=== PATIENT | female | born 1975 | race Caucasian/White ===

== ENCOUNTER 2021-01-21 16:18 | Emergency (ER) | payer BC ==
[~2021-01-21] VITALS: Ht 170 cm; Wt 90.9 kg
--- NOTE | 2021-01-21 17:10 | Diagnostic Imaging Report ---
EXAMINATION: Right knee radiographs, 3 views. COMPARISON: None. HISTORY: 45-year-old female, right knee pain. FINDINGS: There is no identified acute fracture. The lateral view is obliquely positioned. There does appear to be at least mild patellofemoral compartment joint space loss. The medial and lateral compartment joint spaces are well preserved. There is no knee joint effusion. IMPRESSION: 1. No identified acute bony abnormality. 2. At least mild patellofemoral compartment osteoarthritis without knee joint effusion. Dictated by: Dictated on workstation # [id number]
--- NOTE | 2021-01-21 17:43 | ED Lower Extremity ---
General Chief Complaint: Lower Extremity Stated Complaint: R KNEE INJ,PASSED OUT Nursing Triage Note: Patient reports standing on a cooler trying to get into the bed of her truck. Cooler slipped out from underneath her and her R leg twisted and a 'pop' was felt in the knee. Patient states after she put pressure on her R leg, she felt she was going to pass out. Source: patient Exam Limitations: no limitations History of Present Illness Date Seen by Provider: Jan 21, 2021 Time Seen by Provider: 16:25 Initial Comments This 45-year-old woman presents to the emergency room with injury to the right knee. She was stepping up on a small cooler to get into the bed of her truck. The cooler slipped out from underneath her. She fell with a twisting motion and felt a pop in the knee. Since then it has felt unstable. She has pain with weightbearing. There is a popping sensation when she moves the knee. Denies any prior injury to this knee. She denies any other acute injury during the incident today. Allergies and Home Medications Allergies Coded Allergies: No Known Allergies (Verified Allergy, Unknown, 08/27/05) Patient Home Medication List Home Medication List Reviewed: Yes Review of Systems Constitutional: no symptoms reported EENTM: no symptoms reported Respiratory: no symptoms reported Cardiovascular: no symptoms reported Gastrointestinal: no symptoms reported Genitourinary: no symptoms reported Musculoskeletal: see HPI Skin: no symptoms reported Psychiatric/Neurological: No Symptoms Reported Past [id number]-[id number]-Sbaosz Hx Patient Social History Tobacco Use?: No Substance use?: No Alcohol Use?: Yes Alcohol Frequency: Couple times a week Past Medical History Surgeries: Yes Abdominal (Hernia), Section Respiratory: No Cardiac: No Neurological: No : No Reproductive Disorders: No Genitourinary: No Gastrointestinal: No Musculoskeletal: No Endocrine: No HEENT: No Cancer: No Psychosocial: No Integumentary: No Physical Exam Vital Signs Vital Signs - First Documented 01/21/21 16:32 Temp 36.8 Pulse 81 Resp 18 B/P (MAP) 156/81 (106) Pulse Ox 98 Capillary Refill : Height, Weight, BMI Height: '" Weight: lbs. oz. kg; 31.00 BMI Method: General Appearance: WD/WN, mild distress HEENT: normal ENT inspection Knees: right knee other (No tenderness in the joint line or over the patella. No significant pain with axial loading. Clunking crepitus with passive range of motion. Drawer tests reveal no clunk or laxity.) Progress/Results/Core Measures Results/Orders My Orders Orders - CHELSEY PAN MD Knee, Right, 3 Views (01/21/21 16:33) Vital Signs/I&O 01/21/21 01/21/21 16:32 17:49 Temp 36.8 36.8 Pulse 81 81 Resp 18 18 B/P (MAP) 156/81 (106) 156/81 (106) Pulse Ox 98 98 Blood Pressure Mean: 106 Progress Progress Note : Progress Note Knee x-ray revealed no bony injuries. Knee immobilizer was applied. Patient was advised to follow-up with her primary care provider to be considered for MRI to evaluate for soft tissue injury. Diagnostic Imaging Diagonstic Imaging: Xray Plain Films/CT/US/NM/MRI: knee Comments Right knee x-ray viewed by me and report reviewed. See report below: NAME: LEAH TAVERAS [facility] REC#: [id number] PT STATUS: REG ER : 1975 PHYSICIAN: CHELSEY PAN MD ADMIT DATE: 01/21/21/ER Signed Date of Exam:01/21/21 KNEE, RIGHT, 3 VIEWS EXAMINATION: Right knee radiographs, 3 views. COMPARISON: None. HISTORY: 45-year-old female, right knee pain. FINDINGS: There is no identified acute fracture. The lateral view is obliquely positioned. There does appear to be at least mild patellofemoral compartment joint space loss. The medial and lateral compartment joint spaces are well preserved. There is no knee joint effusion. IMPRESSION: 1. No identified acute bony abnormality. 2. At least mild patellofemoral compartment osteoarthritis without knee joint effusion. Dictated by: Dictated on workstation # [id number] Dict: 01/21/215 Trans: 01/21/211709 [facility] [id number] Interpreted by: JOHANNY RING MD Electronically signed by: JOHANNY RING MD 01/21/214 Departure Impression Primary Impression: Injury of right knee Qualified Codes: S89.91XA - Unspecified injury of right lower leg, initial encounter Disposition: HOME, SELF-CARE Condition: Improved Departure-Patient Inst. Decision time for Depature: 17:42 Referrals: NO,LOCAL PHYSICIAN (PCP) Primary Care Physician Patient Instructions: Knee Pain (DC) Add. Discharge Instructions: X-rays revealed no injury to the bony structures of your knee. There may be soft tissue injury such as meniscus tear or ligament tear. This can be further evaluated by repeat exam and appropriate imaging such as MRI if necessary. Please follow-up with your primary care provider soon as possible. Call Saturday for an appointment. Rest, elevation, and 20-minute intervals of icing may help reduce pain and swelling. Use the knee immobilizer for stability and comfort as needed. Use crutches and avoid full weightbearing with walking until your follow-up appointment. Light weightbearing to rest your foot on the floor is acceptable. Call with questions or concerns. Return to the ER if you have worsening symptoms. All discharge instructions reviewed with patient and/or family. Voiced understanding. CHELSEY PAN MD Jan 21, 2021 17:43
[2021-01-21 17:49] VITALS: BP 156/81
== END 2021-01-21 17:49 | disposition home or self-care (01) ==
LOC: EDUNIT# 16:18 → ER 16:23
DX: S89.91XA Unspecified injury of right lower leg, initial encounter (principal); W17.89XA Other fall from one level to another, initial encounter
CPT/HCPCS: 73562; 99283; L1830

== ENCOUNTER → 2021-02-07 | Outpatient (CLI) | payer BC ==
--- NOTE | 2021-02-07 17:41 | Diagnostic Imaging Report ---
PROCEDURE: MRI right joint lower extremity without contrast. TECHNIQUE: Multiplanar, multisequence non contrast-enhanced MRI of the right lower extremity was accomplished. INDICATION: Twisted right knee. There is a moderate joint effusion. There appears to be moderate amount of marrow edema in the lateral aspect of the proximal tibia as well as in the posterior aspect of the medial and proximal tibia. These are areas of probable bone bruise. There may be a subchondral fracture of the proximal tibia medially. The ACL is not visualized and consistent with an ACL tear. The PCL is intact. There is thinning of the medial meniscus but no discrete tear is seen. No displaced meniscal fragment is identified. The medial and lateral collateral ligament complexes appear to be intact. Extensor mechanism is unremarkable. IMPRESSION: 1. Moderate joint effusion and bone bruises. 2. ACL tear. 3. No meniscal tear is detected. Dictated by: Dictated on workstation # [id number]
== END ==
LOC: RAD 16:15
PROVIDERS: ATTEND Nurse Practitioner
DX: S80.01XA Contusion of right knee, initial encounter (principal); S83.31XA Tear of articular cartilage of right knee, current, initial encounter; M25.461 Effusion, right knee; X50.1XXA Overexertion from prolonged static or awkward postures, initial encounter
CPT/HCPCS: 73721

== ENCOUNTER 2021-04-11 15:47 | Outpatient (RCR) | payer BC | END 2021-05-28 | disposition home or self-care (01) | PROVIDERS: ATTEND Orthopaedic Surgery | DX: M23.611 Other spontaneous disruption of anterior cruciate ligament of right knee (principal) ==